=== PATIENT | male | born 1985 | race Caucasian/White ===

== ENCOUNTER 2019-04-16 22:40 | Emergency (ER) | payer SELFPAY | END 2019-04-17 02:33 | disposition home or self-care (01) | LOC: JER 04-17 02:33 ==

== ENCOUNTER 2019-04-30 21:36 | Emergency (ER) | payer SELFPAY ==
--- NOTE | 2019-04-30 21:44 | PDOC ---
Rapid Medical Evaluation Time Seen by Provider: 04/30/19 21:41 Medical Evaluation: Allergies Allergy/AdvReac Type Severity Reaction Status Date / Time No Known Allergies Allergy Verified 04/17/19 02:24 04/30/19 21:41 I have performed a brief in-person evaluation of this patient. The patient presents with a chief complaint of: c/o palpitations and numbness to arms tonight while at girlfriend's house. Recurrent per pt. Denies any pmhx Pertinent physical exam findings:stable I have ordered the following:ekg The patient will proceed to the ED for further evaluation. Discharge Disposition - Diagnosis Palpitations - Referrals - Patient Instructions - Post Discharge Activity
[2019-04-30 21:45] VITALS: TEMP 97.9; BMI 31.2
--- NOTE | 2019-04-30 21:46 | PDOC ---
Rapid Medical Evaluation Time Seen by Provider: 04/30/19 21:41 Medical Evaluation: Allergies Allergy/AdvReac Type Severity Reaction Status Date / Time No Known Allergies Allergy Verified 04/17/19 02:24 Vital Signs Temp Pulse Resp BP Pulse Ox 97.9 F 99 H 17 178/99 H 100 04/30/19 21:43 04/30/19 21:43 04/30/19 21:43 04/30/19 21:43 04/30/19 21:43 04/30/19 21:46 BP elevated here w/ HR 99 Discharge Disposition - Diagnosis Palpitations - Referrals - Patient Instructions - Post Discharge Activity
--- NOTE | 2019-04-30 23:55 | PDOC ---
History of Present Illness - General Chief Complaint: Palpitations Stated Complaint: pain in arm Time Seen by Provider: 04/30/19 21:41 - History of Present Illness Initial Comments: 05/01/19 00:55 34yo M w/no PMH presents from home c/o palpitations, chest pain, nausea, sweating, epigastric pain, weakness, and anxiety x3hrs. Pt was sitting at his girlfriend's house and suddenly had onset of sx at 915pm. Pt had severe sx for 1.5hrs that gradually subsided on own to mild sx now. Pt endorses palpitations, trembling of his entire body, nausea but no emesis, b/l arm numbness (resolved) , feeling cold, sweating, epigastric pressure type pain, L-sided nonradiating pressure type chest pain, mild circumferential pressure type headache, and b/l leg weakness. Pt states this has happened two other times in past 1 month but pt has not had evaluated and does not have a PCP. Denies any aggravating or palliating events. Denies any inciting event, stress, or anxiety, but feels nervous now. Denies trauma, falls, head injury, recent travel, recent illness, cardiac hx, FHx of cardiac disease or sudden , hx of clots/PE, drug use, alcohol use, smoking, hormone use, recent surgeries, F/C, vomiting, SOB, hemoptysis, back pain, vertigo, vision changes, current numbness/tingling, dysuria, hematuria, diarrhea, constipation, blood in stool, leg swelling, calf tenderness. Pt has tried no medications to help. Past History - Past Medical History Allergies/Adverse Reactions: Allergies Allergy/AdvReac Type Severity Reaction Status Date / Time No Known Allergies Allergy Verified 04/17/19 02:24 Home Medications: Ambulatory Orders Cephalexin Monohydrate [Keflex -] 250 mg PO Q6H #40 capsule 04/17/19 Sulfamethoxazole/Trimethoprim [Bactrim Ds -] 1 tab PO BID #20 tablet 04/17/19 COPD: No - Immunization History Td Vaccination: Yes TDAP Vaccination: Yes Immunization Up to Date: Yes - Suicide/Smoking/Psychosocial Hx Smoking History: Never smoked Have you smoked in the past 12 months: No Information on smoking cessation initiated: No Hx Alcohol Use: No Drug/Substance Use Hx: No Review of Systems - Review of Systems Comments:: 05/01/19 00:57 Constitutional: Positive for chills, sweating, whole body weakness. Negative for fever, fatigue. HENT: Negative for sore throat, rhinorrhea, congestion. Eyes: Negative for visual disturbance. Respiratory: Negative for shortness of breath, cough, and wheezing. Cardiovascular: Positive for chest pain and palpitations. Negative for leg swelling. Gastrointestinal: Positive for epigastric pain and nausea. Negative for blood in stool, constipation, diarrhea, and vomiting. Genitourinary: Negative for dysuria, flank pain, and hematuria. Musculoskeletal: Negative for myalgias, back pain, and neck pain. Skin: Negative for rash. Neurological: Positive for light-headedness, numbness, headache, and weakness. Negative for vertigo, syncope. Psychiatric/Behavioral: Positive for nervousness. Negative for behavioral problems and confusion. *Physical Exam - Vital Signs Last Vital Signs Temp Pulse Resp BP Pulse Ox 97.9 F 99 H 17 178/99 H 100 04/30/19 21:43 04/30/19 21:43 04/30/19 21:43 04/30/19 21:43 04/30/19 21:43 - Physical Exam Comments: 05/01/19 00:56 Gen: Alert, NAD, mildly anxious but comfortable-appearing. HEENT: PERRL, EOMI, MMM, NCAT. No conjunctival pallor. Sclera are non-icteric. Oropharynx is clear. CV: Regular rate and rhythm. No murmurs, rubs, or gallops. PULM: No resp distress. CTAB, no wheezes, rales, or rhonchi. ABD: +mild epigastric TTP, soft, ND, no rebound tenderness or guarding, no CVA tenderness. BACK: No TTP of c/t/l-spine. No step-offs or deformities. MSK: No bony deformities. 2+ pulses in all extremities. NEURO: AAOx3. PERRL. CN 2-12 intact. 5/5 strength in all extremities. Sensation to light touch intact in all extremities. No pronator drift. No dysmetria. No dysdiadochokinesia. No abnormal nystagmus. No skew deviation. Normal gait. EXTREMITIES: No cyanosis. No clubbing. No edema. No calf tenderness. PSYCH: Mildly anxious mood and normal thought pattern. SKIN: Warm and dry. Normal capillary refill. No rashes. No jaundice. Heart Score/ECG Review - ECG Impressions Comment:: 05/01/19 01:49 NSR, 82bpm, QTc 429ms, rightward axis, no TANNER elevations or depressions, no TWIs. No evidence of arrythmia, ischemia, Vtmf-Mqueaxvss-Hgebv (delta wave), Qqte-Iuiglg-Vcilft (shortened SC interval), Brugada syndrome, long or short QT interval, HOCM ED Treatment Course - LABORATORY CBC & Chemistry Diagram: 05/01/19 01:00 05/01/19 01:00 Medical Decision Making - Medical Decision Making 05/01/19 00:36 34yo M w/no PMH presents from home c/o palpitations, chest pain, nausea, sweating, epigastric pain, weakness, and anxiety x3hrs. Pt was sitting at his girlfriend's house and suddenly had onset of sx at 915pm. Pt had severe sx for 1.5hrs that gradually subsided on own to mild sx now. Pt endorses palpitations, trembling of his entire body, nausea but no emesis, b/l arm numbness (resolved) , feeling cold, sweating, epigastric pressure type pain, L-sided nonradiating pressure type chest pain, mild circumferential pressure type headache, and b/l leg weakness. Pt states this has happened two other times in past 1 month but pt has not had evaluated and does not have a PCP. Denies any aggravating or palliating events. Denies any inciting event, stress, or anxiety, but feels nervous now. Denies trauma, falls, head injury, recent travel, recent illness, cardiac hx, FHx of cardiac disease or sudden , hx of clots/PE, drug use, alcohol use, smoking, hormone use, recent surgeries, F/C, vomiting, SOB, hemoptysis, back pain, vision changes, vertigo, current numbness/tingling, dysuria, hematuria, diarrhea, constipation, blood in stool, leg swelling, calf tenderness. Pt has tried no medications to help. Hemodynamically stable but hypertensive 178/99, anxious-appearing, neurologically intact. Symptoms sound most consistent with panic attacks, but will also consider and r/o more emergent etiologies. Low concern for ACS/NM due to lack of hx, lack of RFs, and pre-trop/EKG HEART score 1 (for moderately suspicious presentation) - r/o with EKG and serial troponins. Palpitations concerning for arrythmia - r/o with EKG and refer cardiology for further w/u. CP also concerning for pulmonary etiology such as PNA or COPD exacerbation, although of lower concern due to lack of hx, lack of SOB and lungs CTAB, but r/ o with CXR and labs. Presentation including lack of SOB or PE RFs of very low concern for PE, Wells 0, Perc negative - no need for further testing at this time. Due to palpitations, sweating, and lightheadedness, also consider and r/o thyroid etiologies, infection, and metabolic derangements with labs. Due to epigastric pain/TTP and nausea, also consider GI etiologies such as esophagitis , gastritis, and pancreatitis - obtain labs and give GI cocktail and reassess. No back pain or hemodynamic instability concerning for dissection or AAA rupture - no further testing indicated at this time. Pt complains of various neurologic symptoms including lightheadedness, headache, b/l arm numbness, and leg weakness, but pt's complete neurologic exam is benign - full strength, intact sensation, normal gait, no cerebellar sx - all unconcerning for SAH, stroke, or other intracranial etiology of sx - no further testing indicated. -EKG -Labs: CBC, CMP, cardiac profile, lipase, TSH -CXR -Maalox, Pepcid, IVF, Tylenol -Due to time of onset 2114, do troponin x2 -Dispo: likely d/c home pending w/u 05/01/19 01:50 EKG: No evidence of arrythmia, ischemia, Jvty-Agntpxozf-Ydnnx (delta wave), Lown -Ganong-Awan (shortened SC interval), Brugada syndrome, long or short QT interval, HOCM Signed out to Dr Hutton. *DC/Admit/Observation/Transfer Diagnosis at time of Disposition: Palpitations - Discharge Dispostion Disposition: HOME Condition at time of disposition: Improved Decision to Admit order: No - Referrals Referrals: [facility] [place] [facility] [place] [Provider Group] Reynold Guzman MD [Staff Physician] - Jonn Leo MD [Staff Physician] - Richy Garcia MD [Staff Physician] - - Patient Instructions Printed Discharge Instructions: DI for Anxiety -- Adult, DI for Palpitations Additional Instructions: You have been seen in the Emergency Department for chest pain and palpitations. Your EKG, chest X-ray, and labs, including Troponin (a heart enzyme), show no signs concerning for an emergent condition such as a heart attack or pneumonia. We are uncertain of the cause of your symptoms so you need to have further evaluation. We have given you multiple referrals to Cardiologists (heart doctors) and a Primary Care/Internal Medicine clinic. Call one of the cardiologists to set up an appointment for within 1 week. Also call the Internal Medicine Clinic to set up an appointment for within 1 week and establish a primary care doctor. Return to the ED immediately if you experience chest pain, difficulty breathing , dizziness, or any other new or worsening symptom. - Post Discharge Activity
[2019-05-01] MEDS ORDERED: ACETAMINOPHEN 500 MG TABLET (FP) PO ONE (00:33)
[2019-05-01] MEDS ORDERED: SODIUM CHLORIDE 0.9% 500 ML INFUS.BAG IV ONE (00:33)
[2019-05-01] MEDS ORDERED: MAG HYDROX/AL HYDROX/SIMETH 30 ML UNIT-DOSE CUP PO ONE (00:33)
[2019-05-01] MEDS ORDERED: FAMOTIDINE 20 MG/50 ML IVPB 20 MG/50 ML MG IVPB ONE ×2 (00:33→00:46)
[2019-05-01] MEDS ORDERED: ACETAMINOPHEN 325 MG TABLET (FP) ONE (00:45)
[2019-05-01] MEDS ORDERED: MAG HYDROX/AL HYDROX/SIMETH 30 ML UNIT-DOSE CUP ONE (00:46)
[2019-05-01 01:26] LABS: BASO % 0.4 % (0-2.0); EOS % 1.1 % (0-4.5); HEMATOCRIT 47.7 % (35.4-49); HEMOGLOBIN 16.6 GM/dL (11.7-16.9); LYMPH % 26.3 % (8-40); MCH 30.6 pg (25.7-33.7); MCHC 34.7 g/dl (32.0-35.9); MEAN CELL VOLUME 88.1 fl (80-96); MEAN PLT VOLUME 9.1 fl (7.5-11.1); MONO % 5.2 % (3.8-10.2); PLATELET COUNT 203 K/MM3 (134-434); RBC 5.42 M/mm3 (4.00-5.60); RDW 13.2 % (11.9-15.9); WHITE BLOOD COUNT 5.1 K/mm3 (4.0-10.0)
--- NOTE | 2019-05-01 01:47 | PDOC ---
*Physical Exam - Vital Signs Last Vital Signs Temp Pulse Resp BP Pulse Ox 97.9 F 99 H 17 178/99 H 100 04/30/19 21:43 04/30/19 21:43 04/30/19 21:43 04/30/19 21:43 04/30/19 21:43 - Physical Exam Comments: 05/01/19 01:45 34 yo M with no pmhx without a primary medical doctor presents to the emergency department with palpitations with bilateral arm numbness with associative chest pain. Endorses a hx of anxiety. No hx of cardiac issues, but denies previous work up. Denies familial hx. No smoking. EKG shows NSR. No ST elevations. ED Treatment Course - LABORATORY CBC & Chemistry Diagram: 05/01/19 01:00 05/01/19 01:00 - ADDITIONAL ORDERS Additional order review: Laboratory Results 05/01/19 01:00 Lipase 155 05/01/19 01:00 RBC 5.42 MCV 88.1 MCHC 34.7 RDW 13.2 MPV 9.1 Neutrophils % 67.0 Lymphocytes % 26.3 Monocytes % 5.2 Eosinophils % 1.1 Basophils % 0.4 - Medications Given in the ED: ED Medications Discontinued Medications Generic Name Dose Route Start Last Admin Trade Name Freq PRN Reason Stop Dose Admin Acetaminophen 975 mg 05/01/19 00:33 05/01/19 01:08 Tylenol - PO 05/01/19 00:34 975 mg ONCE ONE Administration Al Hydroxide/Mg Hydroxide 30 ml 05/01/19 00:33 05/01/19 01:07 Mylanta Oral Suspension - PO 05/01/19 00:34 30 ml ONCE ONE Administration Famotidine/Sodium Chloride 20 mg in 50 mls @ 100 mls/hr 05/01/19 00:33 01:08 Pepcid 20 Mg Premixed Ivpb - IVPB 05/01/19 01:02 100 mls/hr ONCE ONE Administration Sodium Chloride 1,000 ml 05/01/19 00:33 05/01/19 01:07 Normal Saline - IV 05/01/19 00:34 1,000 ml ONCE ONE Administration *DC/Admit/Observation/Transfer Diagnosis at time of Disposition: Palpitations - Discharge Dispostion Disposition: HOME Condition at time of disposition: Improved - Referrals [place]errals: [facility] [place] [facility] [place] [[place] Group] Jonn Leo MD [Staff Physician] - Reynold Guzman MD [Staff Physician] - Richy Garcia MD [Staff Physician] - - Patient Instructions Printed Discharge Instructions: DI for Anxiety -- Adult, DI for Palpitations Additional Instructions: You have been seen in the Emergency Department for chest pain and palpitations. Your EKG, chest X-ray, and labs, including Troponin (a heart enzyme), show no signs concerning for an emergent condition such as a heart attack or pneumonia. We are uncertain of the cause of your symptoms so you need to have further evaluation. We have given you multiple referrals to Cardiologists (heart doctors) and a Primary Care/Internal Medicine clinic. Call one of the cardiologists to set up an appointment for within 1 week. Also call the Internal Medicine Clinic to set up an appointment for within 1 week and establish a primary care doctor. Return to the ED immediately if you experience chest pain, difficulty breathing , dizziness, or any other new or worsening symptom. - Post Discharge Activity
[2019-05-01 01:50] LABS: ALBUMIN 4.3 g/dl (3.4-5.0); BILIRUBIN,TOTAL 0.7 mg/dL (0.2-1); BLOOD UREA NITROGEN 16.5 mg/dL (7-18); CALCIUM 9.1 mg/dL (8.5-10.1); CREATININE 0.7 mg/dL (0.55-1.3); POTASSIUM 3.9 mmol/L (3.5-5.1); TOT PROT 7.4 g/dl (6.4-8.2)
--- NOTE | 2019-05-01 02:05 | PDOC ---
Documentation entered by Gilbert Telles SCRIBE, acting as scribe for Neli Singleton MD. Neli Singleton MD: This documentation has been prepared by the Elfego avitia Xhesika, SCRIBE, under my direction and personally reviewed by me in its entirety. I confirm that the documentation accurately reflects all work, treatment, procedures, and medical decision making performed by me. Attending Attestation - Resident Resident Name: RobertalisetteNadyaBarbara - ED Attending Attestation I have performed the following: I have examined & evaluated the patient, The case was reviewed & discussed with the resident, I agree w/resident's findings & plan - HPI HPI: 05/01/19 01:54 The patient is a 34 year old male, Nepali speaking, with no significant past medical history who presents to the ED with palpitations 3hrs prior to arrival. The patient states he endorsed associated weakness, sweating, chest pain, nausea , epigastric pain, b/l arm numbness, b/l leg weakness, and headache, which have since resolved. Patient notes he had similar symptoms 3x in the past month but has not been evaluated for. Patient denies recent travel, recent illness, cardiac history or family history of cardiac disease or sudden . Patient denies history of blood clots/PE. Patient denies drug use or alcohol use. Patient denies any complaints currently. Denies fever, chills, chest pain, SOB, palpitation, dizziness, weakness, N, V, D , abdominal pain, bladder and bowel problems, leg swelling, No sick contacts or travel. No new changes in medications. Allergies: None Social history: Lives with family. No tobacco, ETOH or drug use. Meds: as documented in EMR - Physicial Exam PE: 05/01/19 01:55 Agree with the resident's HPI and PE as documented in the electronic medical record. NAD, well appearing, EOMI, PERRL, MMM, nl conjunctiva, anicteric; neck supple. lungs clear, RRR, abdomen soft nontender. Back nontender. DORSEY x4, no focal neuro deficits. No peripheral edema. normal color for ethnicity, WWP. - Medical Decision Making 05/01/19 02:06 See HPI for details. Prior notes reviewed, including admissions, discharges and consultations. Vital signs reviewed, hypertensive. Vital Signs Temp Pulse Resp BP Pulse Ox 97.9 F 99 H 17 178/99 H 100 04/30/19 21:43 04/30/19 21:43 04/30/19 21:43 04/30/19 21:43 04/30/19 21:43 DDx chest pain: ACS, coronary vasospasm, NSTEMI, arrhythmia, unstable angina, PE , dissection, PUD, esophageal spasm, GERD, gastritis, costochondritis, pneumonia , pleurisy, pericarditis/myocarditis. dehydration, electrolyte/metabolic derangements. laboratory results and imaging reviewed, basic labs and lytes wnl, LFTs/lipase_normal CXR_neg for acute pathology Cardiac panel_neg, serial trop/ekg EKG normal sinus rhythm at 82 bpm, no interval abnormalities, narrow QRS, ST and T wave segments and morphology normal. ED course -interventions: GI cocktail, IVF, analgesia s/o pending repeat trop/ekg, if unchanged DC 05/01/19 02:08 05/01/19 02:21 05/01/19 18:00 Heart Score/ECG Review - History History: Slightly suspicious - Electrocardiogram EKG: Normal - Age Age: </= 45 - Risk Factors Based on the list above the patient has:: No risk factors known - Troponin Troponin: </= normal limit - Score Heart Score - Total: 0 #1 ECG reviewed & interpreted by me at: 21:55 General ECG Interpretation: Sinus Rhythm, Normal Rate, Normal Intervals 05/01/19 02:07 EKG normal sinus rhythm at 82 bpm, no interval abnormalities, narrow QRS, ST and T wave segments and morphology normal.
[2019-05-01 06:04] VITALS: BP 168/94; PULSE 87
--- NOTE | 2019-05-01 11:29 | EKG ---
Test Reason : Blood Pressure : / mmHG Vent. Rate : 082 BPM Atrial Rate : 082 BPM P-R Int : 170 ms QRS Dur : 092 ms QT Int : 368 ms P-R-T Axes : 016 095 035 degrees QTc Int : 429 ms POOR DATA QUALITY, INTERPRETATION MAY BE ADVERSELY AFFECTED NORMAL SINUS RHYTHM RIGHTWARD AXIS BORDERLINE ECG NO PREVIOUS ECGS AVAILABLE Confirmed by CLARIBEL WRAY MD ([id number]) on 05/01/2019 11:29:11 AM Referred By: Confirmed By:CLARIBEL WRAY MD
== END 2019-05-01 06:00 | disposition home or self-care (01) ==
LOC: JER 21:36
PROC: 3E033GC Introduction of Other Therapeutic Substance into Peripheral Vein, Percutaneous Approach (ICD-10-PCS; principal; 2019-04-30)
DX: R00.2 Palpitations (principal); F41.9 Anxiety disorder, unspecified
CPT/HCPCS: 36415; 71045-TC-FY; 71046-TC-FY; 80053; 82550; 82553; 83690; 84443; 84484; 85025; 93005; 93010; 99283-25

== ENCOUNTER 2021-12-21 18:03 | Emergency (ER) | payer OTHER ==
[2021-12-21 18:31] VITALS: BP 134/86; PULSE 73; TEMP 97.2; BMI 25.0
[2021-12-21] MEDS ORDERED: IBUPROFEN 600 MG TABLET (FP) PO ONE ×2 (18:38→18:39)
[2021-12-21] MEDS ORDERED: DIPHTH,PERTUSS(ACELL),TET 0.5 ML DISP.SYRIN IM ONE ×2 (18:39→18:41)
== END 2021-12-21 19:37 | disposition home or self-care (01) ==
LOC: JERFT 18:03
PROC: 0HQGXZZ Repair Left Hand Skin, External Approach (ICD-10-PCS; principal; 2021-12-21)
PROC: 3E0234Z Introduction of Serum, Toxoid and Vaccine into Muscle, Percutaneous Approach (ICD-10-PCS; 2021-12-21)
DX: S61.012A Laceration without foreign body of left thumb without damage to nail, initial encounter (principal); W26.8XXA Contact with other sharp object(s), not elsewhere classified, initial encounter
CPT/HCPCS: 73130-TC-LT-FY; 90715; 99283-25

== ENCOUNTER 2021-12-27 18:56 | Emergency (ER) | payer OTHER ==
[2021-12-27 19:03] VITALS: BP 129/83; PULSE 85; TEMP 97.6; BMI 31.2
== END 2021-12-27 20:07 | disposition home or self-care (01) ==
LOC: JERFT 18:56
DX: Z48.02 Encounter for removal of sutures (principal)
CPT/HCPCS: 99281-25

== ENCOUNTER 2023-11-03 07:49 | Emergency (ER) | payer OTHER ==
[2023-11-03 07:56] VITALS: BP 135/86; PULSE 73; RESP 18; TEMP 97.5; BMI 37.0
[2023-11-03] MEDS ORDERED: ACETAMINOPHEN 500 MG TABLET (FP) ONE (08:45)
[2023-11-03] MEDS: ACETAMINOPHEN 500 MG TABLET (FP) PO ONE (08:47)
== END 2023-11-03 10:32 | disposition home or self-care (01) ==
LOC: JER 07:49
DX: M25.562 Pain in left knee (principal); X50.1XXA Overexertion from prolonged static or awkward postures, initial encounter; Y99.0 Civilian activity done for income or pay
CPT/HCPCS: 73562-TC-LT-FY; 99283-25

== ENCOUNTER 2024-01-12 03:22 | Emergency (ER) | payer OTHER ==
[2024-01-12 03:32] VITALS: BP 143/96; PULSE 92; RESP 18; TEMP 97.8; BMI 36.3
[2024-01-12 04:24] LABS: BASO % 0.8 % (0-2.0); EOS % 2.5 % (0-4.5); HEMATOCRIT 45.9 % (35.4-49); HEMOGLOBIN 16.6 GM/dL (11.7-16.9); LYMPH % 26.6 % (8-40); MCH 31.2 pg (25.7-33.7); MCHC 36.3 g/dl (32.0-35.9); MEAN PLT VOLUME 8.7 fl (7.5-11.1); MONO % 8.8 % (3.8-10.2); NEUT % 61.3 % (42.8-82.8); PLATELET COUNT 201 10^3/uL (134-434); RBC 5.33 M/mm3 (4.00-5.60); RDW 13.5 % (11.9-15.9); WHITE BLOOD COUNT 6.2 K/mm3 (4.0-10.0)
[2024-01-12] MEDS ORDERED: ACETAMINOPHEN INJECTION 100 ML IVPB ONE (04:25)
[2024-01-12] MEDS: ACETAMINOPHEN 1000 MG/100 ML BAG IVPB ONE (04:30)
[2024-01-12 04:32] LABS: INR 0.99 (0.83-1.09); PROTHROMBIN TIME (PATIENT) 11.2 SEC (9.7-13.0)
[2024-01-12 04:41] LABS: POTASSIUM 3.9 mmol/L (3.5-5.1)
[2024-01-12 04:43] LABS: ALBUMIN 3.9 g/dl (3.4-5.0); BLOOD UREA NITROGEN 19.5 mg/dL (7-18)
[2024-01-12 04:46] LABS: CREATININE 0.7 mg/dL (0.55-1.3)
[2024-01-12 04:48] LABS: BILIRUBIN,TOTAL 0.4 mg/dL (0.2-1); TOT PROT 7.4 g/dl (6.4-8.2)
[2024-01-12] MEDS ORDERED: KETOROLAC TROMETHAMINE 15 MG/ML VIAL ONE (05:27)
[2024-01-12] MEDS: KETOROLAC TROMETHAMINE 15 MG/ML VIAL IVPUSH ONE (05:36)
== END 2024-01-12 05:44 | disposition home or self-care (01) ==
LOC: JER 03:22
PROC: 3E033NZ Introduction of Analgesics, Hypnotics, Sedatives into Peripheral Vein, Percutaneous Approach (ICD-10-PCS; principal; 2024-01-12)
PROC: 3E0333Z Introduction of Anti-inflammatory into Peripheral Vein, Percutaneous Approach (ICD-10-PCS; 2024-01-12)
DX: K92.0 Hematemesis (principal); R07.0 Pain in throat; R06.02 Shortness of breath; R07.81 Pleurodynia
CPT/HCPCS: 36415; 70360-TC-FY; 71046-TC-FY; 80053; 84484; 85025; 85610; 85730; 86850; 86900; 86901; 87651; 93005; 93010; 96374; 96375; 99285-25; J0131